=== PATIENT | female | born 1995 | race Caucasian/White ===

== ENCOUNTER 2022-12-23 19:10 | Emergency (ER) | payer OTHER ==
[2022-12-23] MEDS ORDERED: Zofran 4 MG/2 ML VIAL IV ONE (19:32)
[2022-12-23] MEDS ORDERED: Sodium Chloride 0.9% 1000 ML 1,000 ML IV STA (19:32)
[2022-12-23] MEDS ORDERED: TORAdol 30 mg Injection IV ONE (19:32)
[2022-12-23 19:40] VITALS: BP 112/68
[2022-12-23 19:48] LABS: HCG URINE TEST NEGATIVE (NEGATIVE)
[2022-12-23 19:49] LABS: Appearance Clear (Clear); Bacteria None Seen /HPF (None Seen); Bilirubin Negative (Negative); Blood Negative (Negative); Epithelial Cells Few /HPF (None Seen); Glucose, Urine Negative (Negative); Hyaline Casts NONE SEEN /LPF (0-2); Ketones Negative (Negative); Leukocyte Esterase Negative (Negative); Nitrite Negative (Negative); Ph 8.5 (4.6-8.0); Protein,Urine Dip Negative (Negative); Specific Gravity 1.015 (1.005-1.030); Urobilinogen 0.2 mg/dL (0.2); WBC 0-2 /HPF (0-5)
[2022-12-23 19:51] LABS: ADD URINE CULTURE? NO (NO)
[2022-12-23] MEDS ORDERED: TORAdol 30 mg Injection ONE (19:53)
[2022-12-23] MEDS ORDERED: Zofran 4 MG/2 ML VIAL ONE (19:53)
[2022-12-23] MEDS ORDERED: Sodium Chloride 0.9% 1000 ML 1,000 ML ONE (19:53)
[2022-12-23 19:56] LABS: Absolute Neutrophil Ct (ANC) 6.72 x10^3/uL (1.4-6.9); Eosinophil % 1.6 % (0.00-5.0); Eosinophil (Absolute #) 0.16 x10^3/uL (0-0.5); Hemoglobin 12.9 g/dL (12.0-16.0); IMMATURE GRAN # 0.02 x10^3u/L (0.00-0.03); IMMATURE GRAN % 0.2 % (0.00-0.4); Lymphocyte (Absolute #) 2.34 x10^3/uL (1.0-4.6); Lymphocytes % 23.6 % (24.0-44.0); Mean Cell Volume 80.3 fL (78-100); Mean Corpuscular Hemoglobin 24.7 pg (26-32); Mean Corpuscular Hgb Concent. 30.7 g/dL (32-36); Mean Platelet Volume 12.1 fL (7.5-11.0); Monocyte (Absolute #) 0.59 x10^3/uL (0.0-1.3); Monocytes % 5.9 % (0.0-12.0); Neutrophil % 67.7 % (36.0-66.0); Platelet Count 301 x10^3/uL (150-450); Red Blood Count 5.23 x10^6/uL (4.1-5.4); Red Cell Distribution Width 14.9 % (11.5-14.0); White Blood Count 9.9 x10^3/uL (4.0-10.5)
[2022-12-23 20:17] LABS: ALBUMIN 4.3 g/dL (3.5-5.0); ALKALINE PHOSPHATASE 118 U/L (38-126); ANION GAP 13.9 MEQ/L (5-15); BLOOD UREA NITROGEN 13 mg/dL (7-17); CHLORIDE 105 mmol/L (98-107); Calcium 9.4 mg/dL (8.4-10.2); Carbon Dioxide 26 mmol/L (22-30); Creatinine 1 0.56 mg/dL (0.52-1.04); EST GLOMERULAR FILTRATION RATE > 60.0 ML/MIN; Glucose 106 mg/dL (74-106); LIPASE 54 U/L (23-300); Potassium 3.8 mmol/L (3.5-5.1); SGOT/AST 23 U/L (14-36); SGPT/ALT 22 U/L (0-35); SODIUM 141 mmol/L (137-145); Total Protein 8.1 g/dL (6.3-8.2)
[2022-12-23] MEDS ORDERED: Reglan 10 MG/2 ML IV ONE (21:04)
[2022-12-23] MEDS ORDERED: TYLENOL EXTRA STRENGTH 500 MG PO STA (21:04)
[2022-12-23] MEDS ORDERED: TYLENOL EXTRA STRENGTH 500 MG ONE (21:06)
[2022-12-23] MEDS ORDERED: Reglan 10 MG/2 ML ONE (21:06)
[2022-12-23 21:14] VITALS: PULSE 94; O2SAT 98
--- NOTE | 2022-12-23 21:38 | ERPHSYRPT ---
- History of Present Illness Time Seen by Provider: 12/23/22 19:18 Historian: patient Exam Limitations: no limitations Patient Subjective Stated Complaint: Pt reports she has been on vancomycin for c-diff for approx one month. The symptoms from c-diff resolved for approx 2 weeks but for approx 1 week she has been experiencing lower abdominal pain and low back pain, nausea, vomiting, and diarrhea. Reports diarrhea has been dark in color with mucus. Has taken tylenol and ibuprofen with minimal relief. Re Triage Nursing Assessment: Pt alert and oriented x3. No apparent respiratory distress. Ambulated to ED cot without difficulty. Skin w/p/d. Flat affect. Active bowel sounds in all four quads. Abdomen soft/round/lower quads tender with palpation. No stool at this time. No active vomiting at this time. Physician History: 27 years old morbidly obese female with a history of hypothyroidism, asthma, borderline personality disorder, GERD, recent C. difficile on vancomycin presented in the ER with chief complaint of lower abdominal pain worsening for the last few weeks with associated nausea and diarrhea. Patient reports she is on her second round of vancomycin this time. Denies any significant aggravating or relieving factors for pain. No fever or chills reported. Patient has been to multiple ERs per her but could not pinpoint her problem. Timing/Duration: week(s), intermittent, gradual onset, worse Activities at Onset: rest Quality: sharpness Abdominal Pain Onset Location: RLQ, LLQ, suprapubic Pain Radiation: no radiation Severity of Pain-Max: moderate Severity of Pain-Current: moderate Modifying Factors: Improves With: nothing Associated Symptoms: diarrhea, nausea Previous symptoms: same symptoms as today Allergies/Adverse Reactions: morphine Adverse Reaction (Verified 12/23/22 19:30) Hives promethazine [From Phenergan] Adverse Reaction (Verified 12/23/22 19:30) Hives shellfish derived Adverse Reaction (Verified 12/23/22 20:13) Home Medications: Atomoxetine HCl 2 tab PO DAILY 12/23/22 [History] Cyanocobalamin (Vitamin B-12) [Vitamin B12] 1,000 iu PO DAILY 12/23/22 [History] Escitalopram Oxalate [Lexapro] 10 mg PO DAILY 12/23/22 [History] Iron 65 mg PO DAILY 12/23/22 [History] Lamotrigine [Lamotrigine ER] 100 mg PO HS 12/23/22 [History] Levothyroxine Sodium [Synthroid] 200 mg PO DAILY 12/23/22 [History] Metformin HCl 500 mg [Glucophage 500 MG] 500 mg PO DAILY 12/23/22 [History] Mv-Mn/Iron/Folic Acid/Herb 190 [Vitamin D3 Complete Caplet] 2,000 iu PO DAILY 12/23/22 [History] Omeprazole 40 mg PO BID 12/23/22 [History] Vancomycin HCl See Rx Instructions .ROUTE .COMPLEX 12/23/22 [History] lamoTRIgine [Lamictal] 25 mg PO DAILY 12/23/22 [History] Hx Tetanus, Diphtheria Vaccination/Date Given: No (unknown) Hx Influenza Vaccination/Date Given: No Hx Pneumococcal Vaccination/Date Given: No Travel Risk - International Travel Have you traveled outside of the country in past 3 weeks: No - Coronavirus Screening Are you exhibiting any of the following symptoms?: Yes Symptoms: Fever, Vomiting/Diarrhea Close contact with a COVID-19 positive Pt in past 14-21 Days: No - Vaccine Status Have you recieved a Covid-19 vaccination: No - Review of Systems Constitutional: No Symptoms Eyes: No Symptoms Ears, Nose, & Throat: No Symptoms Respiratory: No Symptoms Cardiac: No Symptoms Abdominal/Gastrointestinal: Abdominal Pain, Nausea, Diarrhea Genitourinary Symptoms: Frequency Musculoskeletal: No Symptoms Neurological: No Symptoms Psychological: Anxiety Hematologic/Lymphatic: No Symptoms Immunological/Allergic: No Symptoms - Past Medical History Respiratory History: Asthma Endocrine Medical History: Hypothyroidism GI Medical History: Other Psycho-Social History: Depression Female Reproductive Disorders: Other Other Medical History: c-diff, hx of gastritis, ovarian cyst, chronic UTIs - Past Surgical History Past Surgical History: Yes Gastrointestinal: Cholecystectomy Female Surgical History: Section Other Surgical History: ovary cyst removal - Social History Smoking Status: Never smoker Exposure to second hand smoke: No Drug Use: none Patient Lives Alone: No - Female History Hx Last Menstrual Period: 8 years - has mirena Hx Now: (UNKN) - Nursing Vital Signs Nursing Vital Signs: Initial Vital Signs Temperature 98.7 F 12/23/22 19:19 Pulse Rate 104 H 12/23/22 19:19 Respiratory Rate 18 12/23/22 19:19 Blood Pressure 112/68 12/23/22 19:19 O2 Sat by Pulse Oximetry 98 12/23/22 19:19 Pain Scale Pain Intensity 9 - Physical Exam General Appearance: no apparent distress, alert Eye Exam: PERRL/EOMI Ears, Nose, Throat Exam: normal ENT inspection, pharynx normal, moist mucous membranes Neck Exam: normal inspection, non-tender, supple, full range of motion Respiratory Exam: normal breath sounds, lungs clear Cardiovascular Exam: regular rate/rhythm, normal heart sounds Gastrointestinal/Abdomen Exam: soft, normal bowel sounds, tenderness (Lower abdomen bilaterally. No guarding or rebound tenderness.) Extremity Exam: normal inspection, normal range of motion Neurologic Exam: alert, oriented x 3, cooperative Skin Exam: normal color SpO2 Interpretation: normal SpO2: 98 O2 Delivery: Room Air Ordered Tests: Active Orders 24 hr Category Date Time Status IV Insertion STAT Care 12/23/22 19:32 Active NPO (ED) STAT Care 12/23/22 19:32 Active ABDOMEN AND PELVIS W/0 CONTRAS [CT] Stat Exams 12/23/22 20:23 Taken CBC W DIFF Stat Lab 12/23/22 19:50 Completed CMP Stat Lab 12/23/22 19:50 Completed HCG QUALITATIVE, URINE Stat Lab 12/23/22 19:37 Completed LIPASE Stat Lab 12/23/22 19:50 Completed POCT GLUCOSE Stat Lab 12/23/22 21:13 Completed UA W/RFX UR CULTURE Stat Lab 12/23/22 19:37 Completed Medication Summary Discontinued Medications Generic Name Dose Route Start Last Admin Trade Name Hue PRN Reason Stop Dose Admin Acetaminophen 1,000 mg 12/23/22 21:04 12/23/22 21:07 Acetaminophen 500 Mg Tablet PO 12/23/22 21:05 1,000 mg STAT STA Administration Acetaminophen Confirm 12/23/22 21:06 Acetaminophen 500 Mg Tablet Administered 12/23/22 21:07 Dose 1,000 mg .ROUTE .STK-MED ONE Sodium Chloride 1,000 mls @ 999 mls/hr 12/23/22 19:32 12/23/22 19:55 Sodium Chloride 0.9% 1000 Ml IV 12/23/22 20:32 999 mls/hr .Q1H1M STA Administration Sodium Chloride Confirm 12/23/22 19:53 Sodium Chloride 0.9% 1000 Ml Administered 12/23/22 19:54 Dose 1,000 mls @ ud .ROUTE .STK-MED ONE Ketorolac Tromethamine 30 mg 12/23/22 19:32 12/23/22 19:56 Ketorolac Tromethamine 30 Mg/Ml Inj IV 12/23/22 19:33 30 mg STAT ONE Administration Ketorolac Tromethamine Confirm 12/23/22 19:53 Ketorolac Tromethamine 30 Mg/Ml Inj Administered 12/23/22 19:54 Dose 30 mg .ROUTE .STK-MED ONE Metoclopramide HCl 10 mg 12/23/22 21:04 12/23/22 21:07 Metoclopramide Hcl 10 Mg/2 Ml Vial IV 12/23/22 21:05 10 mg STAT ONE Administration Metoclopramide HCl Confirm 12/23/22 21:06 Metoclopramide Hcl 10 Mg/2 Ml Vial Administered 12/23/22 21:07 Dose 10 mg .ROUTE .STK-MED ONE Ondansetron HCl 4 mg 12/23/22 19:32 12/23/22 19:55 Ondansetron Hcl 4 Mg/2 Ml Vial IV 12/23/22 19:33 4 mg STAT ONE Administration Ondansetron HCl Confirm 12/23/22 19:53 Ondansetron Hcl 4 Mg/2 Ml Vial Administered 12/23/22 19:54 Dose 4 mg .ROUTE .STK-MED ONE Lab/Rad Data: Laboratory Result Diagrams 12/23/22 19:50 12/23/22 19:50 Laboratory Results 12/23/22 12/23/22 12/23/22 Range/Units 21:13 19:50 19:50 WBC 9.9 (4.0-10.5) x10^3/uL RBC 5.23 (4.1-5.4) x10^6/uL Hgb 12.9 (12.0-16.0) g/dL Hct 42.0 (35-47) % MCV 80.3 (78-100) fL MCH 24.7 L (26-32) pg MCHC 30.7 L (32-36) g/dL RDW 14.9 H (11.5-14.0) % Plt Count 301 (150-450) x10^3/uL MPV 12.1 H (7.5-11.0) fL Gran % 67.7 H (36.0-66.0) % Immature Gran % (Auto) 0.2 (0.00-0.4) % Nucleat RBC Rel Count 0.0 (0.00-0.1) % Eos # (Auto) 0.16 (0-0.5) x10^3/uL Immature Gran # (Auto) 0.02 (0.00-0.03) x10^3u/L Absolute Lymphs (auto) 2.34 (1.0-4.6) x10^3/uL Absolute Monos (auto) 0.59 (0.0-1.3) x10^3/uL Absolute Nucleated RBC 0.00 (0.00-0.01) x10^3u/L Lymphocytes % 23.6 L (24.0-44.0) % Monocytes % 5.9 (0.0-12.0) % Eosinophils % 1.6 (0.00-5.0) % Basophils % 1.0 (0.0-0.4) % Absolute Granulocytes 6.72 (1.4-6.9) x10^3/uL Basophils # 0.10 (0-0.4) x10^3/uL Sodium 141 (137-145) mmol/L Potassium 3.8 (3.5-5.1) mmol/L Chloride 105 (98-107) mmol/L Carbon Dioxide 26 (22-30) mmol/L Anion Gap 13.9 (5-15) MEQ/L BUN 13 (7-17) mg/dL Creatinine 0.56 (0.52-1.04) mg/dL Estimated GFR > 60.0 ML/MIN Glucose 106 (74-106) mg/dL POC Glucometer 99 (74 to 106) mg/dL Calcium 9.4 (8.4-10.2) mg/dL Total Bilirubin 0.50 (0.2-1.3) mg/dL AST 23 (14-36) U/L ALT 22 (0-35) U/L Alkaline Phosphatase 118 (38-126) U/L Serum Total Protein 8.1 (6.3-8.2) g/dL Albumin 4.3 (3.5-5.0) g/dL Lipase 54 (23-300) U/L Urine Color (Yellow) Urine Appearance (Clear) Urine pH (4.6-8.0) Ur Specific Evergreen (1.005-1.030) Urine Protein (Negative) Urine Glucose (UA) (Negative) mg/dL Urine Ketones (Negative) Urine Blood (Negative) Urine Nitrite (Negative) Urine Bilirubin (Negative) Urine Urobilinogen (0.2) mg/dL Ur Leukocyte Esterase (Negative) U Hyaline Cast (Auto) (0-2) /LPF Urine Microscopic RBC (0-5) /HPF Urine Microscopic WBC (0-5) /HPF Ur Epithelial Cells (None Seen) /HPF Urine Bacteria (None Seen) /HPF Urine Culture Reflexed (NO) Urine HCG, Qual (NEGATIVE) 12/23/22 12/23/22 Range/Units 19:37 19:37 WBC (4.0-10.5) x10^3/uL RBC (4.1-5.4) x10^6/uL Hgb (12.0-16.0) g/dL Hct (35-47) % MCV (78-100) fL MCH (26-32) pg MCHC (32-36) g/dL RDW (11.5-14.0) % Plt Count (150-450) x10^3/uL MPV (7.5-11.0) fL Gran % (36.0-66.0) % Immature Gran % (Auto) (0.00-0.4) % Nucleat RBC Rel Count (0.00-0.1) % Eos # (Auto) (0-0.5) x10^3/uL Immature Gran # (Auto) (0.00-0.03) x10^3u/L Absolute Lymphs (auto) (1.0-4.6) x10^3/uL Absolute Monos (auto) (0.0-1.3) x10^3/uL Absolute Nucleated RBC (0.00-0.01) x10^3u/L Lymphocytes % (24.0-44.0) % Monocytes % (0.0-12.0) % Eosinophils % (0.00-5.0) % Basophils % (0.0-0.4) % Absolute Granulocytes (1.4-6.9) x10^3/uL Basophils # (0-0.4) x10^3/uL Sodium (137-145) mmol/L Potassium (3.5-5.1) mmol/L Chloride (98-107) mmol/L Carbon Dioxide (22-30) mmol/L Anion Gap (5-15) MEQ/L BUN (7-17) mg/dL Creatinine (0.52-1.04) mg/dL Estimated GFR ML/MIN Glucose (74-106) mg/dL POC Glucometer (74 to 106) mg/dL Calcium (8.4-10.2) mg/dL Total Bilirubin (0.2-1.3) mg/dL AST (14-36) U/L ALT (0-35) U/L Alkaline Phosphatase (38-126) U/L Serum Total Protein (6.3-8.2) g/dL Albumin (3.5-5.0) g/dL Lipase (23-300) U/L Urine Color Yellow (Yellow) Urine Appearance Clear (Clear) Urine pH 8.5 A (4.6-8.0) Ur Specific [place]green 1.015 (1.005-1.030) Urine Protein Negative (Negative) Urine Glucose (UA) Negative (Negative) mg/dL Urine Ketones Negative (Negative) Urine Blood Negative (Negative) Urine Nitrite Negative (Negative) Urine Bilirubin Negative (Negative) Urine Urobilinogen 0.2 (0.2) mg/dL Ur Leukocyte Esterase Negative (Negative) U Hyaline Cast (Auto) NONE SEEN (0-2) /LPF Urine Microscopic RBC 3-5 (0-5) /HPF Urine Microscopic WBC 0-2 (0-5) /HPF Ur Epithelial Cells Few (None Seen) /HPF Urine Bacteria None Seen (None Seen) /HPF Urine Culture Reflexed NO (NO) Urine HCG, Qual NEGATIVE (NEGATIVE) - Progress Progress: improved, pain not gone completely Progress Note: 12/23/22 21:36 27 years old morbidly obese female with a history of hypothyroidism, asthma, borderline personality disorder, GERD, recent C. difficile on vancomycin presented in the ER with chief complaint of lower abdominal pain worsening for the last few weeks with associated nausea and diarrhea. Patient reports she is on her second round of vancomycin this time. Denies any significant aggravating or relieving factors for pain. No fever or chills reported. Patient has been to multiple ERs per her but could not pinpoint her problem. She is given fluids and symptomatic treatment with Zofran/Toradol, on reevaluation feeling better but pain is not completely resolved. She has a normal white count, fairly unremarkable chemistries. No UTI. CT abdomen pelvis per preliminary report is negative for any acute abdominal pelvic findings. I have ordered C. difficile but she could not give us a sample and it would not make much difference as she is already on vancomycin. It is possible she has a chronic pain from colitis, recommended taking Tylenol ibuprofen and outpatient follow-up. Discussed signs symptoms of worsening needing return to ER which she seems understanding. Stable for discharge. Counseled pt/family regarding: lab results, diagnosis, need for follow-up, rad results Medical Desision Making - Diagnostic Testing Radiological Interpretation: Reviewed by me - Departure Departure Disposition: Home Clinical Impression: Lower abdominal pain Condition: Stable Critical Care Time: No Referrals: TANMAY MUHAMMAD DO [Primary Care Provider] - Follow up with PCP 1 day Instructions: Abdominal pain Additional Instructions: Take Tylenol/ibuprofen as needed. Follow-up with primary care for reevaluation. Return to ER for any worsening. Continue with vancomycin.
--- NOTE | 2022-12-24 08:41 | XRAY ---
Indication: Lower abdomen pain, nausea, vomiting, diarrhea. Multiple contiguous axial images obtained through the abdomen and pelvis without contrast. Comparison: None Lung bases clear. Heart not enlarged. Noncontrasted stomach and bowel loops appear nonobstructed. Normal appendix. Previous cholecystectomy. Uterus demonstrates IUD in situ. No free fluid/air. Remaining liver, pancreas, spleen, adrenal glands, kidneys, ureters, bladder, uterus, and aorta are unremarkable for noncontrast exam. Osseous structures intact with incidental tiny superior L2 Schmorl node and L4 limbus vertebrae. No ventral or inguinal hernias. Impression: Negative CT abdomen/pelvis without contrast exam.
== END 2022-12-23 21:45 | disposition home or self-care (01) ==
LOC: ED 19:10
DX: R10.30 Lower abdominal pain, unspecified (principal); R11.0 Nausea; R19.7 Diarrhea, unspecified; Z79.84 Long term (current) use of oral hypoglycemic drugs; Z79.899 Other long term (current) drug therapy; Z28.310 Unvaccinated for COVID-19
CPT/HCPCS: 36000; 36415; 74176; 80053; 81001; 81025; 82947; 83690; 85025; 96360; 96374; 96375; 99284; J1885; J2405; A9270-GY